=== PATIENT | female | born 1990 | race Caucasian/White ===

== ENCOUNTER 2022-08-23 13:58 | Outpatient (CLI) | payer OTHER, SELFPAY ==
--- NOTE | 2022-08-23 14:30 | MR_ITS ---
[address] [address] Phone:?[phone] Fax:?[phone] Referring Physician Information: Dilcia Porter [address] [facility] [address] Phone:?[phone] Fax:?[phone] Patient:?Felecia Andrews D.O.B:?1990 Sex:?Female Phone:?[phone] [facility] MRN:?[id number] Exam Date:?08/23/2022 ? EXAM: MRI OF THE LEFT KNEE CLINICAL INFORMATION: The patient is a 32-year-old with left knee pain. PRIOR SURGERY: None reported. COMPARISON STUDIES: There are no prior studies available for comparison. TECHNICAL INFORMATION: Imaging was performed on a high-field, 1.5 Elana MR scanner. Axial proton-density and fat-suppressed T2 imaging of the left knee was performed in addition to sagittal proton-density and fat-suppressed T2 imaging. Coronal proton-density, T2, and STIR imaging was also performed. FINDINGS: Articular/Extraarticular collections: Effusion: Minimal. Popliteal cyst: Minimal. Loose bodies: No well-defined intra-articular loose bodies are present. Subcutaneous and extraarticular soft tissues: Nonspecific subcutaneous soft tissue edema and/or hemorrhage can be seen along the anterior aspect of the knee on sagittal series 9 image 20 and on sagittal series 6 image 18. Osseous structures: No evidence for marrow edema or cortical injury. No evidence for fracture or stress injury. No evidence for destructive bony lesion. Ligamentous structures: ACL: Intact and normal in appearance. PCL: Intact and normal in appearance. MCL: Intact and normal in appearance. LCL: Intact and normal in appearance. Posterolateral corner: Intact and normal in appearance. Posteromedial corner: No posteromedial corner soft tissue injury. Semimembranosus and pes anserine tendons demonstrate no tendinopathy or associated bursitis. Extensor mechanism/Patellar retinacular structures: Patellar tendon: Intact, without tendinopathy. Quadriceps tendon: Intact, without tendinopathy. Retinacula: The medial and lateral retinacula are intact. The medial patellofemoral ligament is intact. Medial compartment: Medial meniscus: No evidence for medial meniscal tearing can be seen. There is no evidence for parameniscal cyst formation. No meniscocapsular separation injury is identified. Medial femoral condyle: No chondromalacia, chondral defect, or osteochondral abnormality. Medial tibial plateau: No chondromalacia, chondral defect, or osteochondral abnormality. Lateral compartment: Lateral meniscus: No evidence for lateral meniscal tearing is present. No evidence for parameniscal cyst formation can be seen. Lateral femoral condyle: No chondromalacia, chondral defect, or osteochondral abnormality. Lateral tibial plateau: No chondromalacia, chondral defect, or osteochondral abnormality. Patellofemoral compartment: Patella: No chondromalacia, chondral defect, or osteochondral abnormality. Trochlea: No chondromalacia, chondral defect, or osteochondral abnormality. Neurovascular: No definite neurovascular abnormalities are seen. CONCLUSION: 1. No evidence for medial or lateral meniscal tearing is seen. 2. No chondral injuries along the articular surfaces are present. 3. No acute bony abnormalities are seen. 4. The cruciate and collateral ligaments appear intact. 5. Minimal knee joint effusion and minimal popliteal cyst. AEC Electronically signed on 08/26/2022 8:00:00 AM by Mario Grace M.D.
== END 2022-08-23 13:59 | disposition home or self-care (01) ==
LOC: MRI 14:03
PROVIDERS: PCP Physician Assistant; Visit Provider Physician Assistant
DX: M25.562 Pain in left knee (principal); M25.462 Effusion, left knee
CPT/HCPCS: 73721

== ENCOUNTER 2025-05-19 13:16 | Outpatient (CLI) | payer OTHER, SELFPAY ==
[2025-05-19 23:48] LABS: Chlamydia DNA Amplified* NOT DETECTED (No Detected); GC DNA Amplified* NOT DETECTED (No Detected)
== END 2025-05-19 13:17 | disposition home or self-care (01) ==
PROVIDERS: PCP Student in an Organized Health Care Education/Training Program
DX: Z72.51 High risk heterosexual behavior (principal); Z11.3 Encounter for screening for infections with a predominantly sexual mode of transmission; Z11.4 Encounter for screening for human immunodeficiency virus [HIV]; Z11.59 Encounter for screening for other viral diseases
CPT/HCPCS: 86592; 86703; 86706; 86803; 87340; 87491; 87591

== ENCOUNTER 2025-08-22 09:39 | Outpatient (CLI) | payer OTHER, SELFPAY | END 2025-08-22 09:40 | disposition home or self-care (01) | PROVIDERS: PCP Student in an Organized Health Care Education/Training Program; Visit Provider Physician Assistant Surgical | DX: Z11.3 Encounter for screening for infections with a predominantly sexual mode of transmission (principal) | CPT/HCPCS: 86592; 86703 ==

== ENCOUNTER 2025-08-24 20:01 | Emergency (ER) | payer OTHER, SELFPAY ==
--- OUTSIDE RECORDS SUMMARY | 2025-08-24 20:03 | XMS_ITS | Clinical Summary ---
Author Organization [facility] Address [address] [place] [address] Care Team Providers Care Inspector Publications Name Role Phone No Primary/Referring, Phy Primary Care Provider Unavailable Source Comments You are receiving this document as you are listed as the primary care provider,follow-up provider, or the patient has been referred to you for consultation.This is in compliance with the Medicare and[facility] Incentive [facility],which states Providers who transition their patient to another setting of careor provider of care or refers their patient to another provider of care shouldprovide summary care record for each transition of care or referral. [facility] Allerg[facility] No known active allergies Medications VENTOLIN HFA 108 (90 Base) MCG/ACT inhaler 1 Puff every 4 hours as needed. 05/04/2022 Active Active Problems No known active problems Immunizations Immunization Administration Dates Next Due 9vHPV (Gardasil 9) 07/18/2015 HepB Ped/Adol (0-18 yrs) 11/30/1999,08/30/1999,1 HepB, Unspecified Formulation 12/11/1999 Influenza IIV4 (Quadrivalent ) 0.5mL (89427) 06/30/2020,07/08/2019,08/31/2018,2016,07/09/2016,07/18/2015,09/30/2014 MMR 02/19/2001 Pfizer Monovalent 12+ Purple Top 02/13/2021,01/11 Td (7+ yrs) 04/19/2004 Tdap 05/09/2015,03/27/2007 Social History Tobacco Use Types Packs/Day Years Used Date Smoking Tobacco: Every Day Cigarettes 5 13 Smokeless Tobacco: Never Tobacco Cessation:Ready to Q uit: Yes; Counseling Given: Yes Alcohol Use Standard Drinks/Week Comments Yes 10 (1 standard drink = 0.6 oz pu re alcohol) PHQ-2 Answer Date Recorded PHQ-2 Score 1 05/21/2022 Comments No Sex and Gender Information Value Date Recorded Sex Assigned at Not on file Legal Sex Female 6:22 PM CDT Gender Identity Not on file Sexual Orientation Not on file Last Filed Vital Signs Vital Sign Reading Time Taken Comments Blood Pressure 121/90 04/12/2018 6:40 PM CDT Pulse 87 04/12/2018 6:40 PM CDT Temperature 36.4 C (97.5 F) 04/12/2018 6:40 PM CDT Respiratory Rate 16 04/12/2018 6:40 PM CDT Oxygen Saturation 100% 04/12/2018 6:40 PM CDT Inhaled Oxygen Concentration - - Weight 104.3 kg (230 lb) 05/21/2022 11:40 AM CDT per pt Height 167.6 cm (5' 6) 05/21/2022 11:40 AM CDT per pt Body Mass Index 37.12 05/21/2022 11:40 AM CDT Plan of Treatment Health Maintenance Due Date Last Done Comments Cervical Cancer Screening Due 1990 Hep C Screening (Preventive Services) 1988 HIV Screening (Preventive Services) 2004 Adult Preventive Visit 2006 Pneumococcal Vaccine (1 of 2 - PCV) 2007 HPV Vaccine (2 - 3-dose series) 08/15/2015 07/18/2015 DTaP/Tdap/Td Vaccine (4 - Tdap) 05/09/2025 05/09/2015, 03/27/2007, 04/19/2004 COVID-19 Vaccine (4 - season) 2025 08/29/2021, 02/13/2021, 01/23/2021 Influenza Vaccine (#1) 2025 , 06/30/2020, 07/08/2019, Additional history exists Zoster/Shingles Vaccine (1 of 2) 2038 HepB Vaccine Completed 12/11/1999, 11/13, 08/30/1999, Additional history exists HepA Vaccine Aged Out No longer eligi ble based on patient's age to complete this topic Hib Vaccine Aged Out No longer eligi ble based on patient's age to complete this topic IPV (Polio) Vaccine Aged Out No longe r eligible based on patient's age to complete this topic MCV4 Vaccine Aged Out No longer eligi ble based on patient's age to complete this topic Meningococcal B Vaccine Aged Out No l onger eligible based on patient's age to complete this topic Insurance [employer] INS[employer]ED [employer] [facility] Care Teams Inspector Publications Relationship Specialty Start Date End Date No Primary/Referring, Phy PCP - General 05/27/24
--- OUTSIDE RECORDS SUMMARY | 2025-08-24 20:03 | XMS_ITS | Clinical Summary ---
Author Organization [facility] Address [address] [place] [address] Care Team Providers Care Blending Tank Tender Name Role Phone Mariel Frias Primary Care Provider [phone] Allergies Active Allergy Reactions Criticality Noted Date Comments Allergenic Extracts Wheezing High 10/21/2019 Cats Medications NebulizerIndicati ons:Cough,Exacerb ation of asthma, unspecified asthma severity, unspecified whether persistent (HC) Nebulizer, disposable neb kit x 4, reuseable neb kit x 1, mask x 1, filters x 1. Frequency of use: daily; Medication: albuterol and DuoNeb Length of need: 99 months 1 Device 07/27/20 18 Active albuterol-ipratro pium (DUONEB) (2.5-0.5 mg) in 3 mL NEBULIZATION solutionIndicatio ns:Mild persistent asthma without complication (HC) Inhale 3 mL via a nebulizer every 6 hours if needed for Shortness Of Breath. 90 mL 1 06/04/20 22 Active calcium carbonate (TUMS ULTRA ORAL) Take by mouth. Active CPAPIndications:O SA (obstructive sleep apnea) New CPAP (E0601) machine for home use at pressure: 5-20 , Choice of mask (A7030 or A7034) w/full face cushion (A7031) x1/mo, nasal cushion (A7032) x2/mo, or nasal pillows (A7033) x 2/mo; Length of Need: 99 months; Frequency of use: Daily 1 Each 11 08/05/20 24 Active budesonide-formot Gretchen 80-4.5 mcg/actuation (80-4.5 mcg each actuation) inhalerIndication s:Moderate persistent asthma without complication (HC) Inhale 2 Puffs by mouth two times daily. 10.2 Each 5 03/04/20 25 Active pantoprazole 40 mg delayed-release tabletIndications :Chronic GERD Take 1 Tablet (40 mg) by mouth once daily. 90 Tablet 3 03/04/20 25 Active nicotine 7 mg/24 hr 7 mg/24 hr patchIndications: Tobacco dependence due to cigarettes Apply 1 Patch on dry, clean, hairless skin once daily. 14 Patch 3 03/04/20 25 Active dextroamphetamine -amphetamine (ADDERALL XR) 15 mg Extended-Release capsuleIndication s:Attention deficit hyperactivity disorder (ADHD), combined type Take 1 Capsule (15 mg) by mouth once daily in the morning. 30 Capsule 07/11/20 25 Active dextroamphetamine -amphetamine (Adderall XR) 15 mg Extended-Release capsuleIndication s:Attention deficit hyperactivity disorder (ADHD), combined type Take 1 Capsule (15 mg) by mouth once daily. 30 Capsule 08/10/20 25 025 Active dextroamphetamine -amphetamine (Adderall XR) 15 mg Extended-Release capsuleIndication s:Attention deficit hyperactivity disorder (ADHD), combined type Take 1 Capsule (15 mg) by mouth once daily. 30 Capsule 09/09/20 25 025 Active dextroamphetamine -amphetamine (Adderall XR) 15 mg Extended-Release capsuleIndication s:Attention deficit hyperactivity disorder (ADHD), combined type Take 1 Capsule (15 mg) by mouth once daily. 30 Capsule 10/09/20 25 Active dextroamphetamine -amphetamine (ADDERALL XR) 10 mg Extended-Release capsuleIndication s:Attention deficit hyperactivity disorder (ADHD), combined type,Controlled substance agreement signed Take 1 Capsule (10 mg) by mouth once daily in the morning. 30 Capsule 06/21/20 25 025 Discontin ued(*Medi cation adjustmen t) Active Problems Problem Noted Date Diagnosed Date Controlled substance agreement signed 05/20/2025 Attention deficit hyperactiv ity disorder (ADHD), combined type 04/25/2025 Vitamin D deficiency 09/01/2018 Obesity, Class II, BMI 35-39.9 07/09/2016 Overview (07/09/2016): Ms. Sexton's Body mass index is 34.78 kg/(m^2). This is out of the normal range for a 25 y.o. Normal range for ages 18-64 is between 18.5 and 24.9; normal range for ages 65+ is 23-30. To lose weight we reviewed risks and benefits of appropriate options such as diet, exercise, and medications. Patient's strategy will be self- directed nutrition plan and self-directed exercise program Adjustment disorder with mixed anxiety and depre ssed mood 01/05/2015 Asthma, exercise induced 11/15/2014 Resolved Problems Problem Noted Date Diagnosed Date Resolved Date Encounter for diagnostic endoscopy 04/13/2024 07/11/2025 Encounter for diagnostic col onoscopy due to change in bowel habits 04/13/2024 07/11/2025 Acute tonsillitis 09/30/2017 06/04/2022 Pap smear for cervical cancer screening 12/11/2014 07/11/2025 Overview (03/21/2025): 12/2014 NIL/HPV+ 06/2016, 06/2019, 02/2025 NIL/HPV negative. Plan: HPV based testing due 02/2030 Supervision of normal first 11/15/2014 06/04/2022 Encounters Date Type Department Care Team Description 08/01/[address] [address] Mariel Frias PA Follow Up 07/11/2025 10:20 AM CDT Office Visit [facility] [address] [place] [address] Mariel Frias PA Medication Management (Follow up with 10mg extended release Adderall. Still having some concerns with honing in); Immunization/Injectio n 07/11/[address] [address] Mariel Frias PA 07/11/2025 Travel 06/21/2025 Refill [facility] [address] [place] [address] Mariel Frias PA Refill Request (Adderall ) 06/21/2025 Nurse Triage [facility] [address] [facility] [place] [address] Mariel Frias PA Questions 06/20/2025 Refill [facility] [address] [place] [address] Mariel Frias PA Refill Request (Adderall) from Last 3 Months Immunizations Immunization Administration Dates Next Due HPV 9 (Gardasil 9) 07/18/2015 Hepatitis B (Peds) 11/30/1999,08/30/1999, 999 Hepatitis B, Unspecified 12/11/1999,11/30/1999,1 10/30/1998,07/19/1999 INFLUENZA, IIV3 PF (AGE >= 6 MO) 07/11/2025 Influenza, IIV4 07/22/2023,,06/30/2020,07/08/2019 ,08/31/2018,07/17/2017,07/09/2016, 5,09/30/2014 MMR 02/19/2001 Td (Age >=7 Years) 04/19/2004 Tdap 05/20/2025,05/09/2015,03/27/2007 Family History Medical History Relation Name Comments Addiction problem Brother 1 hx tx Anxiety disorder Father Heart Disease Maternal Grandfather Heart attack Maternal Grandfather Heart Disease Maternal Grandmother Heart attack Maternal Grandmother Good Health Mother Alcoholism Paternal Grandfather Cancer Paternal Grandfather Colon c ancer in 60s Cancer-colon Paternal Grandfather Cancer-colon Paternal Uncle in 60s Anxiety disorder Sister Thyroid Disease Sister possible gra ves Relation Name Status Comments Brother 1 Alive Brother 2 Alive Father Alive Maternal Grandfather Alive Maternal Grandmother Alive Mother Alive Paternal Grandfather Paternal Grandmother Paternal Uncle Sister Alive Social History Tobacco Use Types Packs/Day Years Used Date Smoking Tobacco: Every Day Cigarettes 0.3 14.2 Started: 06/30/2011 Smokeless Tobacco: Never Tobacco Cessation:Ready to Q uit: Not Asked; Counseling Given: Yes Comments:3-5 per day Alcohol Use Standard Drinks/Week Comments Yes 0 (1 standard drink = 0.6 oz pure alcohol) drinks 2 nights per week, 2-8 beer/wine drinks PHQ-2 Answer Date Recorded PHQ-2 TOTAL SCORE 0 07/11/2025 Social Connections Answer Date Recorded Do you often feel lonely or isolated from those around you? 0 03/04/2025 Financial Resource Strain Answer Date R ecorded Difficulty of Paying Living Expenses 3 03/04/2025 Difficulty of Paying Living Expenses Not on file 03/04/2025 Food Insecurity Answer Date Recorded Do you worry your food will run out before you are able to buy more? 1 03/04/2025 Transportation Needs Answer Date Record ed Does lack of transportation keep you from medica l appointments? 1 03/04/2025 Does lack of transportation keep you from work, meetings or getting things that you need? 1 03/04/2025 Housing Stability Answer Date Recorded What is your housing situation today? 1 03/04/2025 Utilities Answer Date Recorded Do you have trouble paying f or utilities (for example, heat, electricity, water, phone)? 1 03/04/2025 Comments No Sex and Gender Information Value Date Recorded Sex Assigned at Not on file Legal Sex Female 8:10 AM TELETYPEWRITER INSTALLER Gender Identity Not on file Sexual Orientation Not on file Obstetrics History Para Term AB IAB SAB Ectopic Multiple Livin g Live Births 1 1 1 1 1 Date Outcome GA Total Labor Labor/2nd/3rd Weight Sex Type Anes PTL Sugar A1 A5 Name Clin 2014 Term 41w 0d 3.74 kg (8 lb 4 oz) F Vag Epidur al Livin g 8 9 [facility] Delivery Location:[place] Last Filed Vital Signs Vital Sign Reading Time Taken Comments Blood Pressure 136/74 07/11/2025 10:21 AM CDT Pulse 102 07/11/2025 10:21 AM CDT Temperature 36.7 C (98.1 F) 03/04/2025 10:42 AM CDT Respiratory Rate 16 04/13/2024 2:15 PM CDT Oxygen Saturation 97% 07/11/2025 10:21 AM CDT Inhaled Oxygen Concentration - - Weight 108.4 kg (239 lb) 07/11/2025 10:21 AM CDT Height 166.4 cm (5' 5.5) 03/04/2025 10:42 AM CD T Body Mass Index 39.17 03/04/2025 10:42 AM CDT Plan of Treatment Health Maintenance Due Date Last Done Comments Pneumococcal series for age 6-49 (1 of 2 - PCV) 2007 HPV series for age 9-45 (2 - 3-dose series) 08/15/2015 07/18/2015 BMI (ht and wt on same day) for age 18+ 03/04/2026 03/04/2025, 10/18/2022, 06/04/2022, Additional history exists Depression screening for age 12+ 07/11/2026 07/11/2025, 05/20/2025, 04/20/2025, Additional history exists Pap test for age 21-65 03/04/2030 , 03/04/2025, 07/08/2019, Additional history exists Tetanus booster 05/20/2035 05/20/2025, 04/13, 03/27/2007, Additional history exists RSV vaccine for adults or (1 - 1-dose 75+ series) 2063 Hepatitis B series for 19+ Completed , 11/30/1999, 11/30/1999, Additional history exists HIV for age 15-65 Completed 09/30/2014 Hepatitis C screening for ag e 18-79 Completed 06/04/2022 Influenza Vaccine Completed 07/11/2025, , 08/29/2021, Additional history exists Procedures Procedure Name Priority Date/Time Associated Diagnosis Comments HPV HIGH RISK Routine 03/04/2025 11:48 AM CDT Screening for malignant neoplasm of cervix ANTI HCV Routine 06/04/2022 12:00 PM CDT Need for hepatitis C screening test ANTI HIV 1/2 Routine 09/30/2014 4:43 PM TELETYPEWRITER INSTALLER Supervision of normal first (HC) from Last 3 Months or Most Recently Relevant to Health Maintenance Results * HPV HIGH RISK (03/04/2025 11:48 AM CDT) TYPE 16 Negative Negative 03/09/2025 3:56 PM CDT [facility] TYPE 18 Negative Negative 03/09/2025 3:56 PM CDT [facility] OTHER HIGH RISK TYPES Negative Negative 03/09/2025 3:56 PM CDT [facility] Other (Cervical) Non-Blood / Unknown 03/04/2025 11:48 AM CDT 03/04/2025 4:16 PM CDT Narrative [facility] - 03/09/2025 3:56 PM CDT HPV types 16, 18, 31, 33, 35, 39, 45, 51, 52, 56, 58, 59, 66 and 68 DNA were undetectable or below the pre-set threshold. Methodology: Dieter Bhargavi 4800 HPV Test Mariel FALL MICROBIOLOGY Final Res ult [facility] [address] [place] [address], [place] * ANTI HCV (06/04/2022 12:00 PM CDT) HEPATITIS C ANTIBODY Non-React dixon Non-React dixon 06/05/2022 1:17 PM CDT [facility] Comment:Antibodies to HCV no t detected; does not exclude the possibility of exposure to HCV. Blood BLOOD SPECIMEN / Unknown Venipuncture / Unknown 06/04/2022 12:00 PM CDT 06/04/2022 12:02 PM CDT Eileen FALL SEND OUTS Final Resu lt [facility] [address] [place] [address], [place] * ANTI HIV 1/2 [04048.0] (09/30/2014 4:43 PM TELETYPEWRITER INSTALLER) HIV-1/HIV-2 ANTIBODY Non-Reacti ve Non-Reacti ve 09/30/2014 10:00 PM TELETYPEWRITER INSTALLER [facility] Blood specimen (specimen) BLOOD SPECIMEN / Unknown Venipuncture / Unknown 09/30/2014 4:43 PM TELETYPEWRITER INSTALLER 09/30/2014 4:43 PM TELETYPEWRITER INSTALLER Narrative [facility] - 09/30/2014 10:00 PM TELETYPEWRITER INSTALLER HIV-1 p24 and HIV-1/HIV-2 Ab not detected us Sabine OJEDA SEND OUTS Final Result [facility] [address] [place] [address], from Last 3 Months or Most Recently Relevant to Health Maintenance Insurance DISTINCTIONS Advance Directives * Full Code (Latest Code Status on File) Date Activated Date Inactivated Comments 04/13/2024 11:07 AM 04/13/2024 4:31 PM Question Answer Comments Code Status Discussion: Discussed * Full Code Date Activated Date Inactivated Comments 09/30/2017 2:20 PM 10/02/2017 2:07 PM * Full Code Date Activated Date Inactivated Comments 06/08/2015 12:32 AM 06/09/2015 4:38 PM * Full Code Date Activated Date Inactivated Comments 06/07/2015 9:44 AM 06/07/2015 11:47 PM Care Teams Blending Tank Tender Relationship Specialty Start Date End Date Mariel Frias PA [address] [place] [address] PCP - General Physician Fixed Assets Accountant 05/20/23
[2025-08-24 20:49] VITALS: BP 130/94; PULSE 128; RESP 20; TEMP 37.8; O2SAT 95; BMI 37.8
--- NOTE | 2025-08-24 21:16 | ED.FEVER ---
HPI - Fever General Time Seen by Provider: 21:16 Date Seen: 08/24/25 Chief Complaint: Fever Stated Complaint: fever, body aches Time Seen by Provider: 08/24/25 21:16 Source: patient Mode of arrival: ambulatory History of Present Illness HPI Narrative: Felecia is a 35-year-old female with past medical history of asthma who presents emergency department for evaluation of fever. Patient reports feeling unwell for the past 4 days. Patient complains of fever, chills, generalized body aches along with rhinorrhea, dry cough, shortness of breath, and headache. Patient reports shortness of breath with wheezing, and states she has been using her albuterol inhaler nebulizer treatments along the past few days. Patient also complains of headache which he describes as a squeezing/tension sensation across the front of her head associated with light sensitivity. Patient reports nausea but denies any vomiting, chest pain, abdominal pain. Denies any urinary symptoms. Patient does use tobacco, reports she has been taking the DayQuil and NyQuil to help with his symptoms. Patient denies any sick contacts however reports that she was at a concert in [place] on Friday night. Related Data Home Medications ?Medication ?Instructions ?Recorded ?Confirmed budesonide-formoterol HFA 80 2 puff inhalation BID 05/19/25 08/24/25 mcg-4.5 mcg/actuation aerosol inhaler (Symbicort) dextroamphetamine-amphetamine 10 1 tab PO DAILY 05/19/25 08/24/25 mg tablet famotidine PO PRN 08/22/25 08/22/25 ipratropium-albuterol inhalation 08/24/25 Allergies Allergy/AdvReac Type Severity Reaction Status Date / Time No Known Drug Allergies Allergy Verified 08/24/25 20:56 Review of Systems Narrative Past medical history, past surgical history, medications, allergies, family history, and social history were reviewed with the patient. No additional pertinent items. A medically appropriate review of systems was performed with pertinent positives and negatives noted in HPI, all other systems negative. Exam Narrative Exam Narrative: General: Afebrile, tearful, in distress HEENT: Normocephalic, atraumatic, conjunctiva normal. MMM Neck: non-tender, supple Cardio: tachycardic rate. regular rhythm Resp: Normal work of breathing, no respiratory distress, lungs clear bilaterally, no wheezing, rhonchi, rales Chest/Back: no visual signs of trauma, no midline tenderness, no CVA tenderness Abdomen: soft, non distension, no tenderness, no peritoneal signs Neuro: alert and fully oriented. CN II-XII grossly intact. Grossly normal strength and sensation in all extremities. MSK: no deformities. Normal range of motion Integumentary/Skin: no rash visualized, normal color Psych: normal affect, normal behavior Const Vital Signs, click to edit/add: Vital Signs - 24 hr 08/24/25 20:49 08/24/25 23:27 Temperature 100.1 F H Pulse Rate [Pulse Oximeter] 128 H 87 Respiratory Rate 20 18 Blood Pressure [Right Upper Arm] 130/94 H 140/78 H Pulse Oximetry 95 96 Oxygen Delivery Method Room Air Room Air Course Vital Signs Vital signs: Initial Vital Signs Temperature 100.1 F H 08/24/25 20:49 Temperature Source Oral 08/24/25 20:49 Pulse Rate 128 H 08/24/25 20:49 Respiratory Rate 20 08/24/25 20:49 Blood Pressure 130/94 H 08/24/25 20:49 Blood Pressure Mean 106 H 08/24/25 20:49 Blood Pressure Position Sitting 08/24/25 20:49 Pulse Oximetry 95 08/24/25 20:49 Oxygen Delivery Method Room Air 08/24/25 20:49 Vital Signs Temperature 100.1 F H 08/24/25 20:49 Pulse Rate 128 H 08/24/25 20:49 Respiratory Rate 20 08/24/25 20:49 Blood Pressure 130/94 H 08/24/25 20:49 Pulse Oximetry 95 08/24/25 20:49 Oxygen Delivery Method Room Air 08/24/25 20:49 Temperature 100.1 F H 08/24/25 20:49 Pulse Rate 87 08/24/25 23:27 Respiratory Rate 18 08/24/25 23:27 Blood Pressure 140/78 H 08/24/25 23:27 Pulse Oximetry 96 08/24/25 23:27 Oxygen Delivery Method Room Air 08/24/25 23:27 Medications Administered Medications: Discontinued Medications Generic Name Dose Route Start Last Admin Trade Name Freq PRN Reason Stop Dose Admin Dexamethasone 10 mg 08/24/25 21:31 08/24/25 21:55 Dexamethasone 10 Mg/Ml Pf IVP 08/24/25 21:32 10 mg ONCE ONE Administration Sodium Chloride 1,000 mls @ 1,000 mls/hr 08/24/25 21:45 08/24/25 21:59 0.9 % Sodium Chloride 1000 Ml IV 08/24/25 22:44 1,000 mls/hr .Q1H MYLA Administration Ketorolac Tromethamine 15 mg 08/24/25 21:31 08/24/25 21:55 Ketorolac 15 Mg/Ml Inj IVP 08/24/25 21:32 15 mg ONCE ONE Administration Metoclopramide HCl 10 mg 08/24/25 21:31 08/24/25 21:59 Metoclopramide Hcl 5 Mg/Ml Inj IVP 08/24/25 21:32 10 mg ONCE ONE Administration MDM - Fever MDM Narrative Medical decision making narrative: Felecia is a 35-year-old female with no significant past medical history presents emergency department for evaluation of fever. Upon arrival patient is ill but nontoxic appearing, febrile 101.8, tachycardic upon arrival with heart rate 128, blood pressure 130/94, oxygen 95% on room air. Differential diagnosis includes but is not limited to viral illness versus influenza/COVID/RSV versus pneumonia versus bronchitis versus cystitis versus bacteremia among others. Upon arrival patient was treated with 1 L IV fluid bolus, IV dexamethasone, Toradol, Zofran. Comprehensive labs, chest x-ray, viral testing performed. I reviewed comprehensive labs which are unremarkable with no leukocytosis white blood cell count 4.7, hemoglobin 15.3, sodium 134, potassium 3.9, no other acute metabolic or electrolyte abnormality, normal lactic acid 1.6, no significant transaminitis, negative test. Urinalysis with no evidence of acute infection. Viral testing negative for COVID/influenza/RSV. I personally reviewed interpreted chest x-ray which demonstrates hazy bilateral airspace opacity. Given patient's fever, shortness of breath, cough, body aches, will treat with antibiotics. Will discharge with instymed prescription for doxycycline. On re-evaluation patient reports significant improvement of her symptoms, repeat vital signs with improvement of tachycardic with a heart rate 87, blood pressure 140/78, oxygen 96% on room air. Patient feels comfortable with discharge home, continue supportive care, close outpatient follow-up and strict return precautions discussed. Patient understands and agrees the plan. Medical Records Attestation: I reviewed the patient's medical records. Lab Data Attestation: I reviewed the patient's lab results. Labs: Lab Results 08/24/25 08/24/25 08/24/25 Range/Units 20:53 21:42 21:48 WBC 4.73 (4.50-11.00) K/uL RBC 4.94 (4.00-5.20) m/uL Hgb 15.3 (12.0-16.0) gm/dL Hct 44.3 (33.0-51.0) % MCV 90 (80-100) fL MCH 31 (26-34) pg MCHC 35 (32-36) gm/dL RDW Coeff of Yash 12.1 (11.5-15.5) % Plt Count 194 (140-440) K/uL Neut % (Auto) 62.4 (42.0-72.0) % Lymph % (Auto) 27.5 (20-44) % Sullivan % (Auto) 8.0 (0.0-11.0) % Eos % (Auto) 1.1 (0.0-7.0) % Baso % (Auto) 0.2 (0.0-3.0) % Neut # (Auto) 2.95 (1.7-7.0) K/uL Lymph # (Auto) 1.30 (0.90-2.90) K/uL Sullivan # (Auto) 0.40 (0.00-0.90) K/UL Eos # (Auto) 0.05 (0.00-0.50) K/uL Baso # (Auto) 0.01 (0.00-0.30) K/uL Abs Immat Gran (auto) 0.04 (0.00-0.30) K/uL Imm/Tot Granulo (auto) 0.8 % Sodium 134 L (135-149) mmol/L Potassium 3.9 (3.6-5.1) mmol/L Chloride 104 (96-114) mmol/L Carbon Dioxide 22 (20-32) mmol/L Anion Gap 8 (7-15) mEq/L BUN 10 (5-24) mg/dL Creatinine 0.9 (0.5-1.5) mg/dL Estimated Creat Clear 80.12 Estimated GFR 84 ml/min Glucose 120 H (60-115) mg/dL Lactate 1.6 (0.5-1.9) mmol/L Calcium 9.0 (8.4-10.6) mg/dL Total Bilirubin 0.3 (0.1-1.5) mg/dL AST 32 (12-35) U/L ALT 39 H (4-35) U/L Alkaline Phosphatase 51 (40-150) U/L Total Protein 7.6 (6.0-8.3) g/dL Albumin 4.2 (3.3-5.0) g/dL HCG, Qual Negative (Negative) Urine Color Yellow (Yellow) Urine Appearance Clear (Clear) Urine pH 5.5 (5.0-8.5) Ur Specific [place] 1.020 (1.000-1.030) Urine Protein Trace A (Negative) Urine Glucose (UA) Negative (Negative) Urine Ketones Trace A (Negative) Urine Blood Trace-intact A (Negative) Urine Nitrite Negative (Negative) Urine Bilirubin Negative (Negative) Urine Urobilinogen 0.2 (0.2-1.0) Ur Leukocyte Esterase Negative (Negative) Urine RBC 2-5 A (0-2) Urine WBC 2-5 (0-5) Ur Squamous Epith Cells Few (None-Few) Urine Bacteria Moderate A (None) Urine Mucus Moderate A (None) SARS-CoV-2 (PCR) Negative SARS-CoV-2 (Negative) Influenza Type A (PCR) Negative PCR FLU A (Negative) Influenza Type B (PCR) Negative PCR FLU B (Negative) RSV (PCR) Negative PCR RSV (Negative) Imaging Data Chest x-ray: Attestation: I have reviewed the pertinent imaging results. Radiologist's impression: Indication: Fever, cough, and shortness of breath. Technique: Two views of the chest. Comparison: Chest x-ray 10/17/2019. Findings/Impression: The heart is not abnormally enlarged. Mediastinal contours are grossly within normal limits. Mild vascular congestion. Hazy bilateral airspace opacification may reflect mild developing infectious process in the appropriate clinical context. No pleural effusion or pneumothorax. No acute osseous abnormality. Discharge Plan Discharge Clinical Impression: Fever, Pneumonia Patient Disposition: Home, Self-Care Condition: Improved Instructions: Community Acquired Pneumonia (ED) Additional Instructions: Please follow-up with your primary care provider in the next 2-3 days for further evaluation and follow-up. Please call to schedule appointment. Please rest, drink plenty of fluids. Please alternate taking Tylenol 1000 mg and ibuprofen 600 mg every 6 hours as needed for fever, body aches. Please take antibiotics twice a day for the next 5 days. Please return to the emergency department if you develop persistent high fevers, difficulty breathing, chest pain, any worsening symptoms. It was a pleasure taking care of you today. We hope you feel better soon. Prescriptions: No Action famotidine [Pepcid AC] PO PRN dextroamphetamine-amphetamine 10 mg tablet 1 tab PO DAILY budesonide-formoterol [Symbicort] 80-4.5 mcg/actuation HFA aerosol inhaler 2 puff inhalation BID ipratropium-albuterol [DuoNeb] inhalation Follow Up/Referrals: Mariel Frias PA-C [Primary Care Provider, Family Practice] Stand Alone Forms: One Public Info Instructions
--- NOTE | 2025-08-24 21:31 | CRLHL7_ITS ---
For Patients: As a result of the Cures Act, medical imaging exams and procedure reports are released immediately into your electronic medical record. You may view this report before your referring provider. If you have questions, please contact your health care provider. Indication: Fever, cough, and shortness of breath. Technique: Two views of the chest. Comparison: Chest x-ray 10/17/2019. Findings/Impression: The heart is not abnormally enlarged. Mediastinal contours are grossly within normal limits. Mild vascular congestion. Hazy bilateral airspace opacification may reflect mild developing infectious process in the appropriate clinical context. No pleural effusion or pneumothorax. No acute osseous abnormality. Dictated by Mario Gibson MD @ 08/24/2025 10:59:23 PM (Electronically Signed)
[2025-08-24 21:51] LABS: Lactate* 1.6 mmol/L (0.5-1.9)
[2025-08-24 21:52] LABS: Hematocrit* 44.3 % (33.0-51.0); Hemoglobin* 15.3 gm/dL (12.0-16.0); Immature Granulocytes Abs Auto 0.04 K/uL (0.00-0.30); Immature Granulocytes Pct Auto 0.8 %; Lymphocytes Absolute Auto 1.30 K/uL (0.90-2.90); Mean Corpuscular HGB Conc 35 gm/dL (32-36); Mean Corpuscular Hemoglobin 31 pg (26-34); Mean Corpuscular Volume 90 fL (80-100); RDW Coefficient of Variation % 12.1 % (11.5-15.5); Red Blood Count* 4.94 m/uL (4.00-5.20); Slide Review Reflex No; White Blood Count* 4.73 K/uL (4.50-11.00)
[2025-08-24 21:53] LABS: Appearance Urine Clear (Clear)
[2025-08-24] MEDS: DEXAMETHASONE 10 MG/ML PF IVP (21:55)
[2025-08-24] MEDS: METOCLOPRAMIDE HCL 5 MG/ML INJ 10 MG IVP (21:59)
[2025-08-24 22:09] LABS: Albumin* 4.2 g/dL (3.3-5.0); Chloride* 104 mmol/L (96-114); Sodium* 134 mmol/L (135-149)
[2025-08-24 22:10] LABS: Potassium* 3.9 mmol/L (3.6-5.1)
[2025-08-24 22:12] LABS: Alanine Aminotransferase* 39 U/L (4-35); Anion Gap 8 mEq/L (7-15); Aspartate Amino Transferase* 32 U/L (12-35); Blood Urea Nitrogen* 10 mg/dL (5-24); Carbon Dioxide* 22 mmol/L (20-32); Creatinine* 0.9 mg/dL (0.5-1.5); Est. Creatinine Clearance* 80.12; Estimated Glomerular Filt Rate 84 ml/min
[2025-08-24 22:13] LABS: Alkaline Phosphatase* 51 U/L (40-150); Bilirubin Total* 0.3 mg/dL (0.1-1.5); Calcium* 9.0 mg/dL (8.4-10.6); Glucose* 120 mg/dL (60-115); HCG Qualitative Serum* Negative (Negative); Total Protein* 7.6 g/dL (6.0-8.3)
[2025-08-24 22:14] LABS: PCR FLU A Negative PCR FLU A (Negative); PCR FLU B Negative PCR FLU B (Negative); PCR RSV Negative PCR RSV (Negative); SARS PCR* Negative SARS-CoV-2 (Negative)
[2025-08-24 23:27] VITALS: BP 140/78; PULSE 87; RESP 18; O2SAT 96
== END 2025-08-25 00:02 | disposition home or self-care (01) ==
PROVIDERS: Emergency Provider Emergency Medicine; PCP Student in an Organized Health Care Education/Training Program
DX: J18.9 Pneumonia, unspecified organism (principal); R50.9 Fever, unspecified; R00.0 Tachycardia, unspecified
CPT/HCPCS: 36415; 71046; 80053; 81001; 83605; 84703; 85025; 87086; 87631; 96374; 96375; 99284; 99285; J1100; J1885; J2765; J7030